=== PATIENT | male | born 1985 | race Caucasian/White ===

== ENCOUNTER 2017-06-12 06:28 | Emergency (ER) | payer OTHER ==
[~2017-06-12] VITALS: Ht 172.7 cm; Wt 70.0 kg
[2017-06-12 06:30] VITALS: BP 133/72; PULSE 101; RESP 16; TEMP 97.9; O2SAT 99
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
[2017-06-12] MEDS ORDERED: KETOROLAC TROMETHAMINE 60 MG/2 ML (IM) VIAL IM ONE (07:15)
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
[2017-06-12] MEDS ORDERED: SODIUM CHLOR 0.9% 1000 ML INJ 1,000 ML IV SCH (08:01)
[2017-06-12] MEDS ORDERED: MORPHINE SULFATE 4 MG/ML INJ IV PUSH ONE (08:15)
[2017-06-12] MEDS ORDERED: SODIUM CHLORIDE 0.9% FLUSH 10 ML FLUSH IV FLUSH PRN (08:15)
[2017-06-12] MEDS ORDERED: ONDANSETRON HCL 4 MG/2 ML VIAL IVP ONE (08:15)
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
[2017-06-12] MEDS ORDERED: PERC5TAB12 PO (09:23)
== END 2017-06-12 09:41 | disposition home or self-care (01) ==
LOC: NEPD 06:28
DX: S42.152A Displaced fracture of neck of scapula, left shoulder, initial encounter for closed fracture (principal); W05.1XXA Fall from non-moving nonmotorized scooter, initial encounter
CPT/HCPCS: 29240; 73030; 73200; 96372; 99284; J1885